=== PATIENT | male | born 1950 | race Caucasian/White ===

== ENCOUNTER → 2017-04-25 | Day surgery (SDC) | payer MEDICARE, BC ==
[~2017-04-25] MED LIST: AMLO1TAB4 PO; ASCO10002 PO; ASPI-482 PO; CALC1TAB PO; CETI10TA22 PO; CHOL10003 PO; ESOM40CA PO; FLAX10003 PO; FOLI1TAB16 PO; GLUC1TAB33 PO; GREE1CAP PO; GUAI600T47 PO; IV RINGERS,LACTATED 1000ML 1,000 ML IV SCH; LIDOCAINE 1% 1 ML SYRINGE. ID PRN; LIDOCAINE 2% PF Vial for OR 5 ML VIAL. ONE; MAGN400T3 PO; MIDAZOLAM HCL/PF 2 MG/2 ML VIAL. IV PRN; MONT10TA9 PO; OMEG-128 PO; PROAIR HFA8.5 GM INH; PROPOFOL 0 ML IV ONE; PROPOFOL 40 ML IV ONE; SULF500T7 PO; TRAM50TA PO; TUMERIC; fentaNYL PF VIAL 100 MCG/2 ML VIAL IV PRN
--- NOTE | 2017-04-25 13:13 | PDOC1 ---
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 Occasional bloating. Last EGD 2014 w/o dysplasia. Due for surveillance. Also h/o colonic adenoma and left-sided UC, stable. Diverticulosis also. No GB, liver or pancreatic history. Due for colonoscopic surveillance as well. Past Medical History Cardiovascular: HTN, Hyperlipidemia, Other (ZACH) Musculoskeletal: Osteoarthritis Renal/: Prostate Ca. Past Surgical History Past Surgical History: Hernia Repair, Total hip replacement (right), Tonsillectomy, Other (prostatectomy) Family History Family History: Cancer (renal, esophageal, colon (not first-degree relative)) Social History Smoke: No ALCOHOL: occassional Drugs: None Current Medications Current Medications Current Medications Midazolam HCl (Versed) 2 mg PRN 1X PRN IV PRIOR TO PROCEDURE; Start 04/25/17 at 12:45; Stop 04/26/17 at 12:44 Fentanyl Citrate (Fentanyl 2ml Vial) 25 mcg PRN Q5MIN PRN IV X 2 DOSES FOR PAIN ; Start 04/25/17 at 12:45; Stop 04/26/17 at 12:44 Fentanyl Citrate (Fentanyl 2ml Vial) 50 mcg PRN Q5MIN PRN IV X 2 DOSES FOR PAIN ; Start 04/25/17 at 12:45; Stop 04/26/17 at 12:44 Ringer's Solution 1,000 ml @ 125 mls/hr Q8H IV ; Start 04/25/17 at 13:00; Stop 04/26/17 at 12:59 Lidocaine HCl 2 ml 1X PRN PRN ID IV START; Start 04/25/17 at 12:45; Stop at 12:44 Active Scripts Active Reported Proair Hfa Inhaler (Albuterol Sulfate) 8.5 Gm Hfa.aer.ad 1 Puff INH PRN Q6HRS Tramadol Hcl 50 Mg Tablet 50 Mg PO Q6H PRN Montelukast Sodium Tablet (Montelukast Sodium) 10 Mg Tablet 10 Mg PO HS PRN Sulfasalazine 500 Mg Tablet 500 Mg PO Nexium Capsule (Esomeprazole Magnesium) 40 Mg Capsule.dr 40 Mg PO DAILYAC Caltrate 600 + D Tablet (Calcium Carbonate/Vitamin D3) 1 Each Tablet 1 Each PO DAILY Vitamin D3 (Cholecalciferol (Vitamin D3)) 1,000 Unit Tablet 1 Tab PO DAILY Vitamin C (Ascorbic Acid) 1,000 Mg Tablet 1,000 Mg PO DAILY Magnesium Oxide 400 Mg Tablet 1 Tab PO DAILY Green Tea (Green Tea Soldier Extract) 1 Each Capsule 1 Each PO DAILY Mucinex (Guaifenesin) 600 Mg Tablet.er 1 Tab PO BID Glucosamine Chondroitin Tab (Gluc Jiang/Chondro Jiang A/Vit C/Mn) 1 Each Tablet 1 Each PO DAILY Flax Oil (Flaxseed Oil) 1,000 Mg Capsule 1,000 Mg PO DAILY [Tumeric] [place] 10 Mg-20 Mg Tablet (Amlodipine/Atorvastatin) 1 Each Tablet 1 Each PO DAILY Montelukast Sodium Tablet (Montelukast Sodium) 10 Mg Tablet 1 Tab PO DAILY [place] 3 500 Softgel ([place]-3/Dha/Epa/Fish Oil) 1 Each Capsule 1 Each PO DAILY Folic Acid 1 Mg Tablet 1 Tab PO DAILY Aspir 81 (Aspirin) 81 Mg Tablet. 1 Tab PO DAILY Zyrtec (Cetirizine Hcl) 10 Mg Tablet 1 Tab PO DAILY Nexium Capsule (Esomeprazole Magnesium) 40 Mg Capsule.dr 1 Cap PO DAILY Allergies Allergies: Coded Allergies: Penicillins (Verified Allergy, Intermediate, 04/25/17) erythromycin base (Verified Allergy, Intermediate, 04/25/17) ROS Review of System otherwise negative. Physical Exam General: Alert, Oriented X3, Cooperative, No acute distress Lungs: Clear to auscultation Heart: S1S2, RRR, no gallops, no murmurs Abdomen: Normal bowel sounds, Soft, No tenderness, No hepatosplenomegaly, No masses Rectal Exam: deferred (to time of procedure) Extremities: No cyanosis, No edema Skin: No significant lesion Neuro: Normal speech, Strength at 5/5 X4 ext, Normal tone, Sensation intact, Cranial nerves 3-12 NL, Reflexes 2+ Vitals Vitals Vital Signs Date Time Temp Pulse Resp B/P (MAP) Pulse Ox O2 Delivery O2 Flow Rate FiO2 04/25/17 12:54 98.4 88 20 93 98.4 VTE Prophylaxis Ordered VTE Prophylaxis Devices: No VTE Pharmacological Prophylaxi: No Assessment/Plan Assessment/Plan IMP: h/o polyps/UC Samuels's --both due for surveillance. PLAN: EGD/colonoscopy JERRY PANTOJA MD Apr 25, 2017 13:13
--- NOTE | 2017-04-25 13:43 | RAD ---
Indication:Abdominal pain and generalized bony Grayscale images of the abdomen were obtained. Comparison none Liver:There is increased attenuation of the ultrasound beam by the liver compatible with fatty infiltration. A focal mass lesion is not seen and the visualized liver Gallbladder:Normal. 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 The right kidney appears unremarkable. Compensatory hypertrophy associated with the right kidney is noted Abdominal aorta and IVC:The most proximal abdominal aorta was obscured by gas. The mid and distal abdominal aorta appeared normal. Only a minimal portion of the IVC was seen which appeared unremarkable Ancillary findings:None Impression:Fatty infiltration of the liver. Solitary right kidney. No acute finding seen in the abdomen or pelvis. Proximal vascular structures in the abdomen partially obscured
--- NOTE | 2017-04-25 14:19 | PDOC4 ---
PROCEDURE Procedure EGD/biopsy, colonoscopy IND: Samuels's/UC, history of adenoma, last 2014 Meds: per anesthesia. Findings: CRISTELA--prostate surgically absent. Multiple tic's, sigmoid into transverse. Active colitis, mild, proximal sigmoid, otherwise OK. No polyps, etc. Retroflex normal. E--Samuels's tongues/islands from 34-39cm. Biopsies x 3 bottles. G--Hiatal hernia. D--Normal to second. Allie. well. IMP: 1. UC, some activity 2. Diverticulosis 3. Samuels's, biopsied. 4. Hiatal hernia REC: await biopsies. resume meds, diet. f/u 2 weeks. repeat EGD 18-24 months. repeat colon 5 years unless otherwise indicated. JERRY PANTOJA MD Apr 25, 2017 14:19
[2017-04-25 14:45] VITALS: BP 131/81
== END | disposition home or self-care (01) ==
LOC: ENDOS 12:25
PROVIDERS: ATTEND Internal Medicine Gastroenterology
DX: K22.70 Barrett's esophagus without dysplasia (principal); K44.9 Diaphragmatic hernia without obstruction or gangrene; E78.00 Pure hypercholesterolemia, unspecified; I10 Essential (primary) hypertension; E66.9 Obesity, unspecified; Z68.44 Body mass index [BMI] 60.0-69.9, adult; Z87.39 Personal history of other diseases of the musculoskeletal system and connective tissue; Z85.46 Personal history of malignant neoplasm of prostate; Z96.641 Presence of right artificial hip joint; Z86.39 Personal history of other endocrine, nutritional and metabolic disease; Z72.89 Other problems related to lifestyle; Z88.1 Allergy status to other antibiotic agents; Z88.0 Allergy status to penicillin
CPT/HCPCS: 43239; 76700; 88305; J2704; J2001

== ENCOUNTER → 2017-12-05 | Day surgery (SDC) | payer MEDICARE, BC ==
[~2017-12-05] MED LIST changes: -AMLO1TAB4 PO; -ASCO10002 PO; -ASPI-482 PO; -CALC1TAB PO; -CETI10TA22 PO; -CHOL10003 PO; -ESOM40CA PO; -FLAX10003 PO; -FOLI1TAB16 PO; -GLUC1TAB33 PO; -GREE1CAP PO; -GUAI600T47 PO; -IV RINGERS,LACTATED 1000ML 1,000 ML IV SCH; -LIDOCAINE 1% 1 ML SYRINGE. ID PRN; +LIDOCAINE 1% PF 2 ML VIAL. ID; +LIDOCAINE 2% PF Vial for OR 5 ML VIAL.; -LIDOCAINE 2% PF Vial for OR 5 ML VIAL. ONE; -MAGN400T3 PO; -MIDAZOLAM HCL/PF 2 MG/2 ML VIAL. IV PRN; -MONT10TA9 PO; +MORPHINE SULFATE 4 MG/ML DISP.SYRIN. IV; -OMEG-128 PO; +ONDANSETRON PF 4 MG/2 ML VIAL. IV; -PROAIR HFA8.5 GM INH; +PROCHLORPERAZINE 10 MG/2 ML VIAL. IV; -PROPOFOL 0 ML IV ONE; +PROPOFOL 20 ML IV; -PROPOFOL 40 ML IV ONE; -SULF500T7 PO; -TRAM50TA PO; -TUMERIC; +fentaNYL PF VIAL 100 MCG/2 ML VIAL IV; -fentaNYL PF VIAL 100 MCG/2 ML VIAL IV PRN
[2017-12-05] MEDS: IV RINGERS,LACTATED 1000ML 1,000 ML IV (12:53)
== END | disposition home or self-care (01) ==
LOC: ENDOS 12:13
DX: K22.710 Barrett's esophagus with low grade dysplasia (principal); K44.9 Diaphragmatic hernia without obstruction or gangrene; Z88.0 Allergy status to penicillin; Z88.1 Allergy status to other antibiotic agents; I10 Essential (primary) hypertension; E11.9 Type 2 diabetes mellitus without complications; E78.5 Hyperlipidemia, unspecified; G47.33 Obstructive sleep apnea (adult) (pediatric); Z85.46 Personal history of malignant neoplasm of prostate; M19.90 Unspecified osteoarthritis, unspecified site; Z90.79 Acquired absence of other genital organ(s); Z98.890 Other specified postprocedural states; Z82.49 Family history of ischemic heart disease and other diseases of the circulatory system; Z80.0 Family history of malignant neoplasm of digestive organs; Z72.89 Other problems related to lifestyle; Z79.82 Long term (current) use of aspirin; Z79.899 Other long term (current) drug therapy
CPT/HCPCS: 43239; J2704

== ENCOUNTER → 2019-05-03 | Outpatient (CLI) | payer MEDICARE, BC ==
[2017-12-05 13:43] VITALS: BP 136/90
[~2019-05-03] MED LIST changes: +ALBU2.5V8 INH; +AMLO1TAB4 PO; +ASCO10002 PO; +ASPI-482 PO; +CALC1TAB PO; +CETI10TA22 PO; +CHOL10003 PO; +ESOM40CA PO; +FLAX10003 PO; +FOLI1TAB16 PO; +GLUC1TAB33 PO; +GREE1CAP PO; +GUAI600T47 PO; -LIDOCAINE 1% PF 2 ML VIAL. ID; -LIDOCAINE 2% PF Vial for OR 5 ML VIAL.; +MAGN400T5 PO; +MONT10TA49 PO; -MORPHINE SULFATE 4 MG/ML DISP.SYRIN. IV; +OMEG-128 PO; -ONDANSETRON PF 4 MG/2 ML VIAL. IV; -PROCHLORPERAZINE 10 MG/2 ML VIAL. IV; -PROPOFOL 20 ML IV; +SITA50TA PO; +SULF500T7 PO; +TRAM50TA PO; +TUMERIC; -fentaNYL PF VIAL 100 MCG/2 ML VIAL IV
--- NOTE | 2019-05-03 14:42 | KCIC ---
MR of the right shoulder HISTORY: Right shoulder pain. TECHNIQUE: Routine multiplanar sequences are obtained. FINDINGS: Degenerative changes at the right shoulder with hypertrophy and inferior osteophytes. Trace subdeltoid bursal fluid. Full-thickness rotator cuff tear of the anterior supraspinatus tendon measures about 15 mm AP diameter with less than 1 cm retraction. More generalized partial thickness undersurface tearing through the more posterior rotator cuff. Mild partial subscapularis tendon tear. Only mild rotator cuff muscle volume loss. Tear of the posterior through superior labrum. Articular cartilage appears intact. Biceps tendinosis. No bone destruction or acute fracture. No acute soft tissue abnormality. IMPRESSION: 1. Small full-thickness rotator cuff tear of the anterior supraspinatus tendon, partial tearing through the remaining rotator cuff. 2. Posterior through superior labral tear. 3. Biceps tendinosis. 4. AC joint DJD with undersurface hypertrophy. Electronically signed by: Jonas Schroeder MD (05/03/2019 2:39 PM) [id number]
--- NOTE | 2019-05-03 17:44 | KCIC ---
MR of the left shoulder HISTORY: Left shoulder pain. Left biceps tear and early [place]. TECHNIQUE: Routine multiplanar sequences are obtained. FINDINGS: Acromioclavicular joint is degenerative. Undersurface osteophytes with mass effect. Full-thickness rotator cuff tear of the anterior supraspinatus tendon measures 15 mm AP diameter with 15 mm retraction. Generalized rotator cuff tendinosis. Partial tearing of the subscapularis tendon. No advanced rotator cuff muscle atrophy. Trace subdeltoid bursal effusion. Distortion and abnormal signal within the superior labrum compatible with degenerative tearing. No acute articular cartilage defect. Biceps tendon is not visualized. No acute fracture or aggressive bone destruction. No acute soft tissue abnormality. IMPRESSION: 1. Full-thickness rotator cuff tear of the anterior supraspinatus tendon with mild retraction. Partial subscapularis tendon tear. 2. Degenerative tearing of the superior labrum. 3. Nonvisualized biceps tendon compatible with tear. Electronically signed by: Jonas Schroeder MD (05/03/2019 5:42 PM) [id number]
== END | disposition home or self-care (01) ==
LOC: KCIC MRI 11:53
PROVIDERS: ATTEND Orthopaedic Surgery
DX: S43.432A Superior glenoid labrum lesion of left shoulder, initial encounter (principal); S43.431A Superior glenoid labrum lesion of right shoulder, initial encounter; M19.011 Primary osteoarthritis, right shoulder; M25.712 Osteophyte, left shoulder; M25.711 Osteophyte, right shoulder; M75.102 Unspecified rotator cuff tear or rupture of left shoulder, not specified as traumatic; M25.811 Other specified joint disorders, right shoulder; M75.101 Unspecified rotator cuff tear or rupture of right shoulder, not specified as traumatic; X58.XXXA Exposure to other specified factors, initial encounter; Y93.89 Activity, other specified; Y92.89 Other specified places as the place of occurrence of the external cause; Y99.8 Other external cause status
CPT/HCPCS: 73221